=== PATIENT | male | born 1950 | race Two or more races ===

== ENCOUNTER 2020-01-28 06:53 | Emergency (ER) | payer MEDICARE, OTHER ==
[~2020-01-28] VITALS: Ht 167.6 cm; Wt 63.5 kg
--- NOTE | 2020-01-28 06:55 | NUR ---
ED Nurse Note: Pt brought in by ambulance from home c/o High BP, pt took his HTN medication at 0430. BP upon triage was 179/80. Pt placed on chuck wagon cook. Pt is A&Ox4. Pt has a portable O2 tank at his side but it is not on. Pt states he doesn't feel sob, hx COPD and HTN
[2020-01-28 06:57] VITALS: BP 190/83
--- NOTE | 2020-01-28 06:59 | NUR ---
HAND-OFF: Report given to Jeremy Isaacs.
--- NOTE | 2020-01-28 07:02 | NUR ---
ED Nurse Note: Received report from Hilda BOONE. Pt AAO x4, verbally responsive. No acute distress. Will cont to monitor.
--- NOTE | 2020-01-28 07:05 | NUR ---
ED Nurse Note: Xray done at bedside.
--- NOTE | 2020-01-28 07:10 | NUR ---
ED Nurse Note: Iv line established. Blood specimen collected and sent to lab.
--- NOTE | 2020-01-28 07:36 | Emergency Room Report ---
History of Present Illness General Chief Complaint: Hypertension Source: Patient Present Illness HPI This patient complains of generalized weakness. He states he is also had elevated blood pressure over the past day. He did take his usual blood pressure medication this morning around 4 AM of 240 mg diltiazem. He denies chest pain or shortness of breath. He does have a history of severe COPD and has a 2 L nasal cannula O2 requirement. He denies abdominal pain. He denies headache or neck pain. He denies weakness. He denies tingling or numbness. Denies cough or congestion. He denies recent illness. He has no other complaints. Allergies: Coded Allergies: CODEINE (Verified Allergy, Unknown, 01/28/20) COVID-19 Screening Contact w/high risk pt: No Recent Travel to affected area: No Experienced COVID-19 symptoms?: No COVID-19 Testing performed VETERANS' COORDINATOR: No Patient History Past Medical History: see triage record, HTN, COPD Reviewed Nursing Documentation: PMH: Agreed; PSxH: Agreed Nursing Documentation-PMH Hx Hypertension: Yes Hx COPD: Yes Review of Systems All Other Systems: negative except mentioned in HPI Physical Exam Vital Signs Date Time Temp Pulse Resp B/P (MAP) Pulse Ox O2 Delivery O2 Flow Rate FiO2 01/28/20 06:46 98.1 20 190/83 (118) 96 Room Air 01/28/20 06:57 92 Sp02 EP Interpretation: reviewed, normal General Appearance: no apparent distress, alert, GCS 15, non-toxic Head: normocephalic, atraumatic Eyes: bilateral eye normal inspection, bilateral eye PERRL ENT: hearing grossly normal, normal pharynx, no angioedema, normal voice Neck: full range of motion, supple/symm/no masses Respiratory: chest non-tender, lungs clear, no respiratory distress, no retraction, no accessory muscle use, decreased breath sounds, speaking full sentences Cardiovascular #1: regular rate, rhythm, no edema Gastrointestinal: normal bowel sounds, non tender, soft, non-distended, no guarding, no rebound Rectal: deferred Musculoskeletal: back normal, normal range of motion, gait/station normal, non- tender Neurologic: alert, motor strength/tone normal, oriented x3, sensory intact, responsive, speech normal Psychiatric: judgement/insight normal, memory normal, mood/affect normal, no suicidal/homicidal ideation Skin: no rash, normal color Medical Decision Making Diagnostic Impression: Primary Impression: Hypertension ER Course This patient is very concerned about his blood pressure. This is asymptomatic HTN. The patient's w/u is benign. Laboratory w/u, CXR and EKG is unremarkable. Specifically no e/o cardiac ischemic changes, CVA or other complications. The patient states that he never gets blood pressure this elevated. I did give him hydralazine and lisinopril in the ED. I suspect this is multifactorial, to include diet and anxiety. Regardless, this patient's evaluation is benign and there is no e/o hypertensive urgency or emergency. I will give the patient an rx of lisinopril to have and use if he is having prolonged htn. He is instructed to f/u closely with his PCP. At this time, I did not identify an emergency medical condition. The patient is given close return precautions and f/u instructions. Laboratory Tests Test 01/28/20 07:40 01/28/20 08:05 White Blood Count 7.6 K/UL (4.8-10.8) Red Blood Count 4.89 M/UL (4.70-6.10) Hemoglobin 14.3 G/DL (14.2-18.0) Hematocrit 42.3 % (42.0-52.0) Mean Corpuscular Volume 86 FL (80-99) Mean Corpuscular Hemoglobin 29.3 PG (27.0-31.0) Mean Corpuscular Hemoglobin Concent 33.9 G/DL (32.0-36.0) Red Cell Distribution Width 11.5 % (11.6-14.8) L Platelet Count 222 K/UL (150-450) Mean Platelet Volume 8.5 FL (6.5-10.1) Neutrophils (%) (Auto) 65.2 % (45.0-75.0) Lymphocytes (%) (Auto) 22.3 % (20.0-45.0) Monocytes (%) (Auto) 8.3 % (1.0-10.0) Eosinophils (%) (Auto) 3.0 % (0.0-3.0) Basophils (%) (Auto) 1.3 % (0.0-2.0) Sodium Level 142 MMOL/L (136-145) Potassium Level 4.3 MMOL/L (3.5-5.1) Chloride Level 106 MMOL/L (98-107) Carbon Dioxide Level 30 MMOL/L (21-32) Anion Gap 6 mmol/L (5-15) Blood Urea Nitrogen 16 mg/dL (7-18) Creatinine 0.8 MG/DL (0.55-1.30) Estimated Glomerular Filtration Rate > 60 mL/min (>60) Glucose Level 135 MG/DL (74-106) H Lactic Acid Level 1.80 mmol/L (0.4-2.0) Calcium Level 8.7 MG/DL (8.5-10.1) Total Bilirubin 0.2 MG/DL (0.2-1.0) Aspartate Amino Transferase (AST) 22 U/L (15-37) Alanine Aminotransferase (ALT) 24 U/L (12-78) Alkaline Phosphatase 55 U/L (46-116) Total Creatine Kinase 79 U/L (26-308) Creatine Kinase MB 2.1 NG/ML (0.0-3.6) Creatine Kinase MB Relative Index 2.6 Troponin I 0.000 ng/mL (0.000-0.056) Total Protein 7.3 G/DL (6.4-8.2) Albumin 3.9 G/DL (3.4-5.0) Globulin 3.4 g/dL Albumin/Globulin Ratio 1.1 (1.0-2.7) Urine Color Pale yellow Urine Appearance Clear Urine pH 6 (4.5-8.0) Urine Specific [place] 1.015 (1.005-1.035) Urine Protein Negative (NEGATIVE) Urine Glucose (UA) Negative (NEGATIVE) Urine Ketones Negative (NEGATIVE) Urine Blood Negative (NEGATIVE) Urine Nitrite Negative (NEGATIVE) Urine Bilirubin Negative (NEGATIVE) Urine Urobilinogen Normal MG/DL (0.0-1.0) Urine Leukocyte Esterase Negative (NEGATIVE) Urine Opiates Screen Negative (NEGATIVE) Urine Barbiturates Screen Negative (NEGATIVE) Phencyclidine (PCP) Screen Negative (NEGATIVE) Urine Amphetamines Screen Negative (NEGATIVE) Urine Benzodiazepines Screen Negative (NEGATIVE) Urine Cocaine Screen Negative (NEGATIVE) Urine Marijuana (THC) Screen Negative (NEGATIVE) EKG Diagnostic Results Rate: normal Rhythm: NSR ST Segments: no acute changes Rhythm Strip Diag. Results EP Interpretation: yes Rate: 70's Rhythm: NSR, no PVC's, no ectopy Chest X-Ray Diagnostic Results Chest X-Ray Diagnostic Results : Chest X-Ray Ordered: Yes # of Views/Limited/Complete: 1 View Indication: Chest Pain EP Interpretation: Yes Interpretation: no consolidation, no effusion, no pneumothorax, no acute cardiopulmonary disease Impression: No acute disease Electronically Signed by: Iram Quezada DO Last Vital Signs Date Time Temp Pulse Resp B/P (MAP) Pulse Ox O2 Delivery O2 Flow Rate FiO2 01/28/20 06:57 92 20 Room Air 01/28/20 06:57 98.1 190/83 96 Status: improved Disposition: HOME, SELF-CARE Condition: Improved Scripts Lisinopril* (LISINOPRIL*) 10 Mg Tablet 10 MG ORAL DAILY, #30 TAB Prov: Iram Quezada DO 01/28/20 Referrals: NOT CHOSEN [facility]/,REFERRING (PCP) Iram Quezada DO January 28, 2020 07:36
[2020-01-28 07:59] LABS: BASOPHILS % (AUTO) 1.3 % (0.0-2.0); HEMATOCRIT 42.3 % (42.0-52.0); HEMOGLOBIN 14.3 G/DL (14.2-18.0); LYMPHOCYTES % (AUTO) 22.3 % (20.0-45.0); MEAN CORPUSCULAR VOLUME 86 FL (80-99); MONOCYTES % (AUTO) 8.3 % (1.0-10.0); NEUTROPHILS % (AUTO) 65.2 % (45.0-75.0); PLATELET COUNT 222 K/UL (150-450); RED BLOOD COUNT 4.89 M/UL (4.70-6.10); RED CELL DISTRIBUTION WIDTH 11.5 % (11.6-14.8); WHITE BLOOD COUNT 7.6 K/UL (4.8-10.8)
[2020-01-28 08:00] VITALS: BP 165/66
[2020-01-28 08:05] LABS: ANION GAP 6 mmol/L (5-15); BLOOD UREA NITROGEN 16 mg/dL (7-18); CALCIUM 8.7 MG/DL (8.5-10.1); CARBON DIOXIDE 30 MMOL/L (21-32); CHLORIDE 106 MMOL/L (98-107); CREATININE 0.8 MG/DL (0.55-1.30); POTASSIUM 4.3 MMOL/L (3.5-5.1); SODIUM 142 MMOL/L (136-145)
--- NOTE | 2020-01-28 08:07 | NUR ---
ED Nurse Note: Urine specimen collected and sent to lab.
--- NOTE | 2020-01-28 08:17 | Diagnostic Imaging Report ---
Procedure: XRAY Chest 1v Reason for study: Shortness of breath. Weakness Comparison films: None. FINDINGS: A single one view chest is obtained. Vascularity is normal. Mild left basilar densities either atelectasis or early infiltrate. Left hemidiaphragm slightly elevated. Cardiac and mediastinal silhouette are within normal limits. CP angles are sharp. The bony thorax appear unremarkable. IMPRESSION: Left bibasilar densities as atelectasis versus early infiltrate.
[2020-01-28 08:32] LABS: ALANINE AMINOTRANSFERASE 24 U/L (12-78); ALBUMIN 3.9 G/DL (3.4-5.0); ALBUMIN/GLOBULIN RATIO 1.1 (1.0-2.7); ALKALINE PHOSPHATASE 55 U/L (46-116); ASPARTATE AMINO TRANSFERASE 22 U/L (15-37); BILIRUBIN,TOTAL 0.2 MG/DL (0.2-1.0); CKMB 2.1 NG/ML (0.0-3.6); CREATINE KINASE 79 U/L (26-308)
[2020-01-28 08:51] LABS: APPEARANCE,URINE CLEAR; BILIRUBIN, URINE NEGATIVE (NEGATIVE); COLOR,URINE PALE YELLOW; GLUCOSE, URINE (UA) NEGATIVE (NEGATIVE); KETONES,URINE NEGATIVE (NEGATIVE); LEUKOCYTE ESTERASE ,URINE NEGATIVE (NEGATIVE); NITRITE,URINE NEGATIVE (NEGATIVE); PH,URINE 6 (4.5-8.0); PROTEIN,URINE NEGATIVE (NEGATIVE); UROBILINOGEN,URINE NORMAL MG/DL (0.0-1.0)
[2020-01-28] MEDS ORDERED: Lisinopril 10mg tab ORAL ONE (09:15)
[2020-01-28] MEDS ORDERED: LISINOPRIL10 MG ORAL (09:20)
[2020-01-28 09:59] VITALS: BP 155/70
--- NOTE | 2020-01-28 09:59 | NUR ---
ED Nurse Note: Pt cleared by ERMD for discharge. DC instructions/prescription was given and explained to pt and verbalized understanding of teachings. All medical deviecs such as ID band and IV line removed. Pt is AAO x4, ambulatory and left with all personal belongings.
== END 2020-01-28 09:59 | disposition home or self-care (01) ==
LOC: EDBD 06:53 → EMR 07:08
DX: I10 Essential (primary) hypertension (principal); J44.9 Chronic obstructive pulmonary disease, unspecified; Z88.6 Allergy status to analgesic agent
CPT/HCPCS: 36415; 71045; 80053; 80307; 81003; 82550; 82553; 83605; 84484; 85025; 93005; 96374; 99284; J0360; J7040

== ENCOUNTER 2020-02-10 20:38 | Emergency (ER) | payer MEDICARE, OTHER ==
[~2020-02-10] VITALS: Ht 167.6 cm; Wt 63.5 kg
[~2020-02-10 20:38] MED LIST: LISINOPRIL10 MG ORAL
--- NOTE | 2020-02-10 21:05 | NUR ---
ED Nurse Note: Recieved pt from home here with c/o left chest pain intermittently he has been having for past 3-4 days and wants to know why, pt denies having any pain now, pt is wearing oxygen 2l n/c from home, no sob or labored breathing pt assisted to gowning and he refuse, placed on cardiac monitoring, iv line placed and labs done, will resume care as ordered and continue to closely monitor.
[2020-02-10 21:55] LABS: BASOPHILS % (AUTO) 1.9 % (0.0-2.0); EOSINOPHILS % (AUTO) 2.9 % (0.0-3.0); HEMOGLOBIN 13.4 G/DL (14.2-18.0); LYMPHOCYTES % (AUTO) 24.1 % (20.0-45.0); MEAN CORPUSCULAR VOLUME 92 FL (80-99); MONOCYTES % (AUTO) 9.9 % (1.0-10.0); NEUTROPHILS % (AUTO) 61.2 % (45.0-75.0); PLATELET COUNT 234 K/UL (150-450); RED BLOOD COUNT 4.56 M/UL (4.70-6.10); RED CELL DISTRIBUTION WIDTH 12.6 % (11.6-14.8); WHITE BLOOD COUNT 7.9 K/UL (4.8-10.8)
--- NOTE | 2020-02-10 21:59 | Diagnostic Imaging Report ---
EXAM: XR Chest, 1 View CLINICAL HISTORY: CP TECHNIQUE: Frontal view of the chest. COMPARISON: 01/28/2020 FINDINGS: Lungs: Low lung volumes with bronchovascular crowding. No consolidation, pleural effusion, or pneumothorax. Pleural space: See above. Heart: Unremarkable. No cardiomegaly. Mediastinum: Unremarkable. Bones/joints: Unremarkable. Soft tissues: Consider outpatient unenhanced CT chest versus repeating study with nipple markers to further evaluate nodular left lateral lung 0. 8 cm focus. Upper abdomen: Unchanged left diaphragm elevation. IMPRESSION: 1. Low lung volumes with bronchovascular crowding. 2. Otherwise no acute cardiopulmonary disease. 3. If there is continued concern, recommend frontal and lateral chest radiographs or CT. 4. Unchanged left diaphragm elevation. 5. Consider outpatient unenhanced CT chest versus repeating study with nipple markers to further evaluate nodular left lateral lung 0.8 cm focus.
[2020-02-10 22:00] VITALS: BP 154/67
[2020-02-10 22:04] LABS: ANION GAP 7 mmol/L (5-15); BLOOD UREA NITROGEN 15 mg/dL (7-18); CALCIUM 9.1 MG/DL (8.5-10.1); CARBON DIOXIDE 30 MMOL/L (21-32); CHLORIDE 106 MMOL/L (98-107); CREATININE 0.9 MG/DL (0.55-1.30); SODIUM 143 MMOL/L (136-145)
[2020-02-10 22:15] LABS: ALANINE AMINOTRANSFERASE 17 U/L (12-78); ALBUMIN 3.9 G/DL (3.4-5.0); ALBUMIN/GLOBULIN RATIO 1.3 (1.0-2.7); ALKALINE PHOSPHATASE 48 U/L (46-116); ASPARTATE AMINO TRANSFERASE 18 U/L (15-37); BILIRUBIN,TOTAL 0.3 MG/DL (0.2-1.0)
--- NOTE | 2020-02-10 22:44 | NUR ---
AMA: SEE AMA FORM. pt refused admission and states he will return if pain returns. pt is ambulatory, denies cp, has all belongings and signed AMA form after speaking with , javier noted during pt leaving, ambulates well with steady gait. iv line removed without complications.
[2020-02-10 22:45] VITALS: BP 154/67
--- NOTE | 2020-02-13 16:30 | Emergency Room Report ---
History of Present Illness General Chief Complaint: Chest Pain Source: Patient Present Illness HPI 69-year-old male presents to ED for evaluation of chest pain. Started yesterday. Midsternal, comes and goes. Denies pain at this time. Denies shortness of breath. Notes history of hypertension. Denies alcohol or drug use. history of COPD. Normally on oxygen but does not require it at this time. No other aggravating relieving factors. Denies any other associated symptoms Allergies: Coded Allergies: CODEINE (Verified Allergy, Unknown, 01/28/20) COVID-19 Screening Contact w/high risk pt: No Recent Travel to affected area: No Experienced COVID-19 symptoms?: No COVID-19 Testing performed DANCE CHOREOGRAPHER: No Patient History Past Medical History: HTN, COPD Past Surgical History: none Pertinent Family History: none Social History: Denies: smoking, alcohol use, drug use Immunizations: UTD Reviewed Nursing Documentation: PMH: Agreed; PSxH: Agreed Nursing Documentation-PMH Hx Hypertension: Yes Hx COPD: Yes Review of Systems All Other Systems: negative except mentioned in HPI Physical Exam Vital Signs Date Time Temp Pulse Resp B/P (MAP) Pulse Ox O2 Delivery O2 Flow Rate FiO2 02/10/20 20:57 98.2 78 16 146/75 (98) 95 Nasal Cannula 2.0 Sp02 EP Interpretation: reviewed, normal General Appearance: no apparent distress, alert, GCS 15, non-toxic Head: normocephalic, atraumatic Eyes: bilateral eye normal inspection, bilateral eye PERRL ENT: hearing grossly normal, normal pharynx, no angioedema, normal voice Neck: full range of motion, supple/symm/no masses Respiratory: chest non-tender, lungs clear, normal breath sounds, speaking full sentences Cardiovascular #1: regular rate, rhythm, no edema Cardiovascular #2: 2+ carotid (R), 2+ carotid (L), 2+ radial (R), 2+ radial (L) , 2+ dorsalis pedis (R), 2+ dorsalis pedis (L) Gastrointestinal: normal bowel sounds, non tender, soft, non-distended, no guarding, no rebound Rectal: deferred Genitourinary: normal inspection, no CVA tenderness Musculoskeletal: back normal, normal range of motion, gait/station normal, non- tender Neurologic: alert, motor strength/tone normal, oriented x3, sensory intact, responsive, speech normal Psychiatric: judgement/insight normal, memory normal, mood/affect normal, no suicidal/homicidal ideation Reflexes: 3+ bicep (R), 3+ bicep (L), 3+ tricep (R), 3+ tricep (L), 3+ knee (R) , 3+ knee (L) Lymphatic: no adenopathy Medical Decision Making Diagnostic Impression: Primary Impression: Chest pain Qualified Codes: R07.9 - Chest pain, unspecified ER Course Hospital Course 69 yo M presents c/o chest pain. Differential diagnoses include: TN/unstable angina, contusion, muscle strain, PTX, rib fracture Clinical course Patient placed on stretcher. 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 After initial history and physical I ordered labs, EKG, chest x-ray labs reviewed- no leukocytosis, hb/hct stable, electrolytes ok, trop negative EKG - NSR, no acute ischemic changes interpreted by me Chest x-ray- no acute process Given patient's presentation and risk factors I recommended admission. Patient would rather be discharged and follow-up with his PMD. Patient states he wishes to go home. Understands the risks of leaving. Patient has competency to make his own decisions. Signed AMA form. I. I feel this is a highly complex case requiring extensive working including EKG/Rhythm strip, Xray/CT/US, Blood/urine lab work, repeat exams while in ED, and administration of strong opiates/narcotics for pain control, admission to hospital or close patient follow up. Diagnosis - chest pain patient left AMA Labs Test 02/10/20 21:35 White Blood Count 7.9 K/UL (4.8-10.8) Red Blood Count 4.56 M/UL (4.70-6.10) Hemoglobin 13.4 G/DL (14.2-18.0) Hematocrit 42.0 % (42.0-52.0) Mean Corpuscular Volume 92 FL (80-99) Mean Corpuscular Hemoglobin 29.4 PG (27.0-31.0) Mean Corpuscular Hemoglobin Concent 31.9 G/DL (32.0-36.0) Red Cell Distribution Width 12.6 % (11.6-14.8) Platelet Count 234 K/UL (150-450) Mean Platelet Volume 10.8 FL (6.5-10.1) Neutrophils (%) (Auto) 61.2 % (45.0-75.0) Lymphocytes (%) (Auto) 24.1 % (20.0-45.0) Monocytes (%) (Auto) 9.9 % (1.0-10.0) Eosinophils (%) (Auto) 2.9 % (0.0-3.0) Basophils (%) (Auto) 1.9 % (0.0-2.0) Sodium Level 143 MMOL/L (136-145) Potassium Level 4.0 MMOL/L (3.5-5.1) Chloride Level 106 MMOL/L (98-107) Carbon Dioxide Level 30 MMOL/L (21-32) Anion Gap 7 mmol/L (5-15) Blood Urea Nitrogen 15 mg/dL (7-18) Creatinine 0.9 MG/DL (0.55-1.30) Estimat Glomerular Filtration Rate > 60 mL/min (>60) Glucose Level 108 MG/DL (74-106) Calcium Level 9.1 MG/DL (8.5-10.1) Total Bilirubin 0.3 MG/DL (0.2-1.0) Aspartate Amino Transf (AST/SGOT) 18 U/L (15-37) Alanine Aminotransferase (ALT/SGPT) 17 U/L (12-78) Alkaline Phosphatase 48 U/L (46-116) Troponin I 0.000 ng/mL (0.000-0.056) Pro-B-Type Natriuretic Peptide 91 pg/mL (0-125) Total Protein 6.8 G/DL (6.4-8.2) Albumin 3.9 G/DL (3.4-5.0) Globulin 2.9 g/dL Albumin/Globulin Ratio 1.3 (1.0-2.7) EKG Diagnostic Results Rate: normal Rhythm: NSR ST Segments: no acute changes ASA given to the pt in ED: No Rhythm Strip Diag. Results EP Interpretation: yes Rhythm: NSR, no PVC's, no ectopy Chest X-Ray Diagnostic Results Chest X-Ray Diagnostic Results : Chest X-Ray Ordered: Yes # of Views/Limited/Complete: 1 View Indication: Chest Pain EP Interpretation: Yes Interpretation: no consolidation, no effusion, no pneumothorax, no acute cardiopulmonary disease Impression: No acute disease Electronically Signed by: Electronically signed by Josh Bravo MD Last Vital Signs Date Time Temp Pulse Resp B/P (MAP) Pulse Ox O2 Delivery O2 Flow Rate FiO2 02/10/20 22:45 98.2 60 16 154/67 97 Nasal Cannula 2.0 Status: improved Disposition: AGAINST MEDICAL ADVICE Condition: Stable Referrals: NOT CHOSEN [facility]/,REFERRING (PCP) Josh Bravo MD Feb 13, 2020 16:30
== END 2020-02-10 22:45 | disposition left against medical advice (07) ==
LOC: EMR 21:20
DX: R07.9 Chest pain, unspecified (principal); I10 Essential (primary) hypertension; J44.9 Chronic obstructive pulmonary disease, unspecified; Z88.6 Allergy status to analgesic agent
CPT/HCPCS: 36415; 71045; 80053; 83880; 84484; 85025; 93005; 99283

== ENCOUNTER 2020-10-17 07:18 | Emergency (ER) | payer MEDICARE, OTHER ==
[~2020-10-17] VITALS: Ht 162.6 cm; Wt 59.0 kg
[2020-10-17] MEDS ORDERED: Nitroglycerin Subl 0.4mg tab SL PRN (07:45)
[2020-10-17] MEDS ORDERED: Enalaprilat 2.5mg/2ml Inj IV ONE (07:45)
[2020-10-17 07:46] LABS: BASOPHILS % (AUTO) 1.4 % (0.0-2.0); EOSINOPHILS % (AUTO) 1.1 % (0.0-3.0); HEMATOCRIT 42.3 % (42.0-52.0); HEMOGLOBIN 13.9 G/DL (14.2-18.0); MEAN CORPUSCULAR VOLUME 93 FL (80-99); MONOCYTES % (AUTO) 9.2 % (1.0-10.0); NEUTROPHILS % (AUTO) 69.4 % (45.0-75.0); PLATELET COUNT 317 K/UL (150-450); RED BLOOD COUNT 4.56 M/UL (4.70-6.10); RED CELL DISTRIBUTION WIDTH 15.3 % (11.6-14.8); WHITE BLOOD COUNT 12.5 K/UL (4.8-10.8)
--- NOTE | 2020-10-17 07:48 | Emergency Room Report ---
History of Present Illness General Chief Complaint: Chest Pain Source: Patient, EMS Present Illness HPI Patient is a 70-year-old male presents for increased chest discomfort. Prior history of COPD. Patient is currently taking antihypertensives. Prior history of aspirin allergy. Patient was brought in by EMS. Onset of symptoms this morning after waking up. Recently had negative coronavirus testing in September. Takes medications for hypertension. EKG by EMS showed sinus tachycardia. Patient states pain started approximately 6 AM. Denies any fever. Had recently had steroids tapered and had been on 40 mg of prednisone but is now on 10. Patient is a former smoker states he quit 5 years ago. Did not drink alcohol. Patient states that he had recently been started on antibiotics due to colonoscopy and is currently on doxycycline as well as Flagyl. 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 Patient History Past Medical History: see triage record Reviewed Nursing Documentation: PMH: Agreed; PSxH: Agreed Nursing Documentation-PMH Hx Hypertension: Yes Hx COPD: Yes Review of Systems All Other Systems: negative except mentioned in HPI Physical Exam Vital Signs Date Time Temp Pulse Resp B/P (MAP) Pulse Ox O2 Delivery O2 Flow Rate FiO2 10/17/20 07:18 98.2 120 16 173/83 (113) 100 Room Air Sp02 EP Interpretation: reviewed, normal General Appearance: normal inspection, well appearing, no apparent distress, alert, GCS 15, Chronically Ill Head: atraumatic ENT: normal ENT inspection, hearing grossly normal, normal voice Neck: normal inspection, full range of motion, supple, no bony tend Respiratory: normal inspection, lungs clear, normal breath sounds, no respiratory distress, no retraction, no wheezing Cardiovascular #1: no edema, tachycardia Gastrointestinal: normal inspection, normal bowel sounds, non tender, soft, no guarding, no hernia Genitourinary: no CVA tenderness Musculoskeletal: normal inspection, back normal, normal range of motion Neurologic: alert, motor strength/tone normal, plunket nurse III-XII nml as tested, oriented x3, responsive, speech normal, normal inspection Psychiatric: normal inspection, judgement/insight normal, mood/affect normal Medical Decision Making Diagnostic Impression: Primary Impression: Chest pain ER Course Patient presents for chest pain. Differential diagnosis include was not limited to pneumonia, COPD exacerbation, myocardial infarction, among others. Patient had recent steroid use and patient's white count is minimally elevated consistent with recent steroids. EKG showed sinus tachycardia. Bedside ultrasound showed no evidence of pericardial effusion. Chest x-ray 1 view showed normal cardiac size without evident infiltrate.Patient's blood pressure was initially hypertensive.Patient's oxygen saturation was 97% on room air. Patient's pain improved over time and appears to be rate related.Patient was offered hospital admission. Patient's laboratory testing was notable for elevated blood sugar likely related to recent steroid use. Patient given IV fluids as well as Medications for blood pressure. Patient was offered hospitali zation which he declined. Patient's oxygen saturation appears to be adequate. This medical record is generated with [employer] claims attorney software. There may be some claims attorney discrepancies related to use of this software Laboratory Tests Test 10/17/20 07:20 White Blood Count 12.5 K/UL (4.8-10.8) H Red Blood Count 4.56 M/UL (4.70-6.10) L Hemoglobin 13.9 G/DL (14.2-18.0) L Hematocrit 42.3 % (42.0-52.0) Mean Corpuscular Volume 93 FL (80-99) Mean Corpuscular Hemoglobin 30.5 PG (27.0-31.0) Mean Corpuscular Hemoglobin Concent 32.8 G/DL (32.0-36.0) Red Cell Distribution Width 15.3 % (11.6-14.8) H Platelet Count 317 K/UL (150-450) Mean Platelet Volume 8.3 FL (6.5-10.1) Neutrophils (%) (Auto) 69.4 % (45.0-75.0) Lymphocytes (%) (Auto) 19.0 % (20.0-45.0) L Monocytes (%) (Auto) 9.2 % (1.0-10.0) Eosinophils (%) (Auto) 1.1 % (0.0-3.0) Basophils (%) (Auto) 1.4 % (0.0-2.0) Sodium Level 144 MMOL/L (136-145) Potassium Level 3.7 MMOL/L (3.5-5.1) Chloride Level 107 MMOL/L (98-107) Carbon Dioxide Level 30 MMOL/L (21-32) Anion Gap 7 mmol/L (5-15) Blood Urea Nitrogen 20 mg/dL (7-18) H Creatinine 0.9 MG/DL (0.55-1.30) Estimated Glomerular Filtration Rate > 60 mL/min (>60) Glucose Level 203 MG/DL (74-106) H Calcium Level 8.9 MG/DL (8.5-10.1) Total Bilirubin 0.5 MG/DL (0.2-1.0) Aspartate Amino Transferase (AST) 33 U/L (15-37) Alanine Aminotransferase (ALT) 61 U/L (12-78) Alkaline Phosphatase 50 U/L (46-116) Troponin I 0.004 ng/mL (0.000-0.056) Total Protein 6.7 G/DL (6.4-8.2) Albumin 3.2 G/DL (3.4-5.0) L Globulin 3.5 g/dL Albumin/Globulin Ratio 0.9 (1.0-2.7) L EKG Diagnostic Results Rate: tachycardiac Rhythm: NSR ST Segments: no acute changes Other Impression Sinus tachycardia with a rate of [address] or T wave changes noted. ASA given to the pt in ED: No Last Vital Signs Date Time Temp Pulse Resp B/P (MAP) Pulse Ox O2 Delivery O2 Flow Rate FiO2 10/17/20 07:18 98.2 120 16 173/83 (113) 100 Room Air Referrals: NOT CHOSEN [facility]/,REFERRING (PCP) Pierce Luan MD Oct 17, 2020 07:48
[2020-10-17 07:54] LABS: ANION GAP 7 mmol/L (5-15); BLOOD UREA NITROGEN 20 mg/dL (7-18); CALCIUM 8.9 MG/DL (8.5-10.1); CARBON DIOXIDE 30 MMOL/L (21-32); CHLORIDE 107 MMOL/L (98-107); CREATININE 0.9 MG/DL (0.55-1.30); POTASSIUM 3.7 MMOL/L (3.5-5.1); SODIUM 144 MMOL/L (136-145)
[2020-10-17 07:59] LABS: ALANINE AMINOTRANSFERASE 61 U/L (12-78); ALBUMIN 3.2 G/DL (3.4-5.0); ALBUMIN/GLOBULIN RATIO 0.9 (1.0-2.7); ALKALINE PHOSPHATASE 50 U/L (46-116); ASPARTATE AMINO TRANSFERASE 33 U/L (15-37); BILIRUBIN,TOTAL 0.5 MG/DL (0.2-1.0)
[2020-10-17 08:11] VITALS: BP 141/73
[2020-10-17] MEDS: Albuterol/Ipratropium 3ml neb HHN ONE (08:20)
[2020-10-17 09:05] VITALS: BP 139/63
--- NOTE | 2020-10-17 09:14 | Diagnostic Imaging Report ---
Indication: Chest pain Technique: One view of the chest Comparison: 02/10/2020 Findings: Left hemidiaphragm is elevated and there is left basilar atelectasis. The lungs and pleural spaces are clear otherwise. The heart size is normal. Findings are unchanged Impression: No acute process
--- NOTE | 2020-10-17 10:25 | NUR ---
ED Nurse Note: pt repeat troponin sent. pt on monitor. pt stable
[2020-10-17] MEDS ORDERED: OMEPRAZOLE20 M2 ORAL (10:55)
--- NOTE | 2020-10-17 11:08 | NUR ---
ER DISCHARGE NOTE: Patient is cleared to be discharged per ERMD, pt is aox4, on room air, with stable vital signs. pt was given dc and prescription instructions, pt was able to verbalize understanding, pt id band and iv site removed without complications. pt is able to ambulate with steady gait. pt took all belongings.
[2020-10-17 11:09] VITALS: BP 146/62
== END 2020-10-17 11:13 | disposition home or self-care (01) ==
LOC: EDBD 07:18 → EMR 07:39 → CANBEDREQ 10:54 → EMR 11:13
DX: R07.9 Chest pain, unspecified (principal); J44.9 Chronic obstructive pulmonary disease, unspecified; I10 Essential (primary) hypertension; Z79.899 Other long term (current) drug therapy; Z88.6 Allergy status to analgesic agent; Z88.5 Allergy status to narcotic agent
CPT/HCPCS: 36415; 71045; 80053; 84484; 85025; 93005; 94640; 96374; 99284; U0004; J7620

== ENCOUNTER 2020-10-28 23:54 | Emergency (ER) | payer MEDICARE, OTHER ==
[~2020-10-28] VITALS: Ht 167.6 cm; Wt 57.2 kg
[~2020-10-28 23:54] MED LIST changes: +OMEPRAZOLE20 M2 ORAL
--- NOTE | 2020-10-28 23:54 | Emergency Room Report ---
History of Present Illness General Chief Complaint: Dyspnea/Respdistress Source: Patient Present Illness HPI Patient is a 70-year-old male with past medical history of COPD home O2 dependent on 2 L, hypertension, anxiety, brought in by ambulance with chief complaint of shortness of breath x 10-14 days. He endorses mild dry cough. He was apparently seen here 11 days ago for similar symptoms and discharged. He denies any specific complaint of chest pain at this time as well as nausea, vomiting, diarrhea, hemoptysis, fever, rash, headache, photophobia, or other symptoms. Patient denies having to increase his baseline oxygen requirement. The patient's symptoms were gradual onset, severity was moderate, duration since 14 days. Quality: sob Past medical history: COPD, hypertension, anxiety Past surgical history: Denies Smoking: Previous heavy smoker but quit 5 years ago Alcohol use: Denies Drug use: Denies Review of systems: CONST: No fevers or chills, No night sweats PULMONARY: No productive cough, No shortness of breath CARDIAC: No chest pain, No palpitations GI: No vomiting, No diarrhea , No melena_or_BRBPR : No dysuria, No hematuria, No discharge NEURO: No new_focal_weakness_or_numbness, No confusion, No vision changes 14 point Review of Systems is otherwise negative except per HPI Physical Exam: GENERAL: Awake_alert_ nontoxic, no acute distress Spo2 95% on 2 L nasal cannula- normal EYES: Extraocular muscles are intact. Conjunctivae clear. Lids without swelling ENT: External nose and ear normal_in_appearance. Oropharynx clear. Head_atraumatic, Moist_oral_mucosa NECK: No JVD. No meningismus. No thyromegaly. Supple. Trachea midline RESP: Normal respiratory effort. Mild diffuse inspiratory and expiratory wheezing. No subcostal retractions. In full complete sentences Symmetric rise. No stridor. Clear_to_auscultation_No_rales_ CARDIAC: Tachycardic and regular rhytm. No_significant pedal edema. ABDOMEN: Soft. Nondistended. Nontender_No_rebound_or_guarding. MSK: Normal muscle tone, without rigidity. Extremities without asymmetric deformity or swelling. Negative Homans' sign SKIN: Warm and dry. No visible cyanosis or pallor NEUROLOGIC: Alert, oriented x3. Motor_and_sensation_grossly_intact. No truncal ataxia. Gait_normal Psych: Normal mood and affect, normal judgment and insight - COORDINATION OF CARE Case was discussed with: Patient Any labs and imaging that were ordered were interpreted as part of the medical decision making: Medical Decision Making/Plan: Differential diagnosis includes: COPD exacerbation, pneumonia, bronchitis, pneumothorax, pulmonary embolism, pulmonary edema, CHF, among others. The patients presentation seems most consistent with a COPD exacerbation given their wheezing on exam with a history of COPD . Labs showed no acute abnormalities. Troponin was negative x2. Initial EKG showed normal sinus rhythm, LVH, and ectopy. Repeat EKG showed no dynamic changes or evolving ischemia. Chest x ray shows no acute disease. Covid rapid antigen test was negative. CTA chest was negative for PE or aortic dissection. There was an incidental finding of thyroid nodule which patient was educated about. I informed him that he will need repeat imaging and testing with his primary doctor in 3 to 5 months to rule out cancer. He verbalizes his understanding of this. The patient was given albuterol, atrovent, steroids, and had serial reassessments which demonstrated significant improvement in their symptoms. Repeat trop and EKG were negative. Acute coronary syndrome is unlikely and the patient is low risk, pain is atypical, nonexertional, and troponin is negative with over 6 hrs of symptoms. The pain is not classic for pericarditis or myocarditis, and the patient has no significant risk factors for a pericardial effusion and has stable vitals signs, unlikely to have tamponade. The patient has no significant risk factors for aortic dissection, no history of connective tissue disorder, and the patients pain is not severe, radiating to the back, or tearing in nature. They have normal bilateral radial and pedal pulses. Patient observed for several hours in the ED, ECG with no emergent findings, patient discharged with no dangerous vital signs, patient instructed to follow up with PMD in the next 1-2 days The patient is now stable to be discharged home safely for further outpatient management and reevaluation by their primary medical doctor in 1-2 days. The patient will be discharged with a prescription for steroids, as well as a refill of their inhaler if needed. 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 COVID-19 Screening: Negative COVID-19 COVID-19 Testing Source: [facility] [place] Nursing Documentation-[facility] Past Medical History: No History, Except For Hx COPD: Yes Physical Exam Sp02 EP Interpretation: reviewed, normal Medical Decision Making Diagnostic Impression: Primary Impression: COPD exacerbation Additional Impressions: Shortness of breath Emphysema lung Thyroid lesion EKG Diagnostic Results Troponin ordered: Yes When was troponin ordered?: Oct 29, 2020 JOSE D Keenibe Lucas 12-lead EKG (interpreted by ) Time: 0002 Indication: Rhythm analysis Tracing visualized and Interpreted by me. Rhythm: Normal sinus rhythm Rate: 98 bpm QTc: 411 Morphology: No_significant_ST_elevations_or_depressions, No STEMI Impression: Normal_sinus_rhythm_without_significant_abnormality. Ectopy. Possible left ventricular hypertrophy. No change from serial EKGs performed on October 17, 2020 Rhythm Strip Diag. Results Rhythm Strip Time: 02:51 EP Interpretation: yes Rate: 81 Rhythm: NSR, no PVC's, no ectopy Chest X-Ray Diagnostic Results Chest X-Ray Diagnostic Results : JOSE D Zavala Chest X-Ray: Views: [ 1 ] view(s) Indication: Shortness of breath Findings: Normal heart size. Mediastinum normal. No infiltrate. Hyperinflated lungs. Left gastric bubble Impression: No acute disease The X-ray(s) were independently viewed and interpreted contemporaneously Electronically signed by Anum tran, CT/MRI/US Diagnostic Results CT/MRI/US Diagnostic Results : Impression CT Angiography Chest Without and With Intravenous Contrast FINDINGS: Artifacts: Breathing artifact degrade image quality. Pulmonary arteries: No filling defects in the pulmonary arteries to suggest thrombus. Aorta: Calcified atherosclerotic tortuous ectatic thoracic aorta. No thoracic aortic aneurysm. Lungs: Biapical scarring. Mild emphysematous change. Bibasilar atelectasis. Nodular density in the posterior medial right lung base. Patchy airspace disease in the left lung base No mass. Pleural space: Unremarkable. No significant effusion. No pneumothorax. Heart: Mild coronary artery calcification. No significant pericardial effusion. No evidence of RV dysfunction. Mediastinum: Small mediastinal lymph nodes, likely reactive. Thyroid: Tiny low-density lesion in the inferior right thyroid gland, probably benign. This measures approximately 5 mm Follow-up thyroid ultrasound as indicated. Bones/joints: Mild degenerative changes in the thoracic spine. No acute fracture. No dislocation. Soft tissues: Unremarkable. Lymph nodes: Unremarkable. No enlarged lymph nodes. IMPRESSION: 1. Negative for pulmonary embolism. 2. No evidence for aortic dissection. 3. Mild emphysematous change. 4. Atelectasis/airspace disease in the lung bases as described. Consider short-term follow-up to exclude underlying lesion in the medial right lung base. 5. Breathing artifact. Dictated By: Марина Avelar MD Reevaluation Time: 02:51 Status: improved Disposition: HOME, SELF-CARE Admit Decision Time: 03:30 Condition: Stable Scripts Azithromycin* (ZITHROMAX*) 250 Mg Tablet 250 MG ORAL DAILY, #6 TAB 0 Refills Take two tables once daily for 1 day, then one tablet once daily for 4 days. Prov: Anum Crouch D.O. 10/29/20 Ipratropium [place] (ATROVENT HFA) 12.9 Gm Hfa.aer.ad 12.9 GM IH DAILY for bronchospasm for 7 Days, #13 GM Prov: Anum Crouch D.O. 10/29/20 Albuterol Sulfate* (ALBUTEROL SULFATE HHN*) 2.5 Mg/3 Ml Vial.neb 2.5 MG HHN Q4H PRN for Shortness of Breath, #25 VIAL Prov: Anum Crouch D.O. 10/29/20 Prednisone* (PREDNISONE*) 20 Mg Tablet 40 MG ORAL DAILY for 5 Days, #10 TAB Prov: Anum Crouch D.O. 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 Follow-up with your doctor sooner if your condition requires a more timely clinical reevaluation. Return to the emergency department immediately if you feel that your condition is worsening or if you have any new or concerning symptoms. Review your discharge instructions and take any prescriptions given as instructed. You were found to have an abnormality on your neck imaging (thyroid nodule) which will need to be reimaged in approximately 3 months. Cancer or malignancy is one of the possibilities so it needs to be monitored to ensure that it is not changing. It is important that you see a primary doctor to be referred for this imaging. Failure to do so could lead to undetected worsening cancer or illness. [facility] PROVIDES FREE OR LOW-COST HEALTH SERVICES TO PEOPLE WHO CAN SHOW PROOF THAT THEY LIVE IN [facility]. TO FIND MORE CLINICS PARTNERED WITH THE [facility] TO PROVIDE SERVICE, PLEASE CALL . Anum Crouch D.O. Oct 28, 2020 23:54
[2020-10-29] MEDS ORDERED: Ipratropium 0.02% Inh Soln 2.5ml UD HHN ONE
[2020-10-29] MEDS ORDERED: Albuterol ud Inhalation HHN ONE
--- NOTE | 2020-10-29 | NUR ---
ED Nurse Note: patient brought in by ems complaints of SOB hx of COPD patient tachypneic on arrival, SOB with ambulation, 2L NC saturation 98%, no fever, recent COVID (-) result
[2020-10-29] MEDS ORDERED: Solu-MEDROL 125mg Inj IVP ONE (00:15)
--- NOTE | 2020-10-29 00:15 | NUR ---
ED Nurse Note: Blood specimen, COVID specimen sent to lab
[2020-10-29 00:19] LABS: BASOPHILS % (AUTO) 1.2 % (0.0-2.0); EOSINOPHILS % (AUTO) 3.2 % (0.0-3.0); HEMATOCRIT 39.3 % (42.0-52.0); HEMOGLOBIN 12.8 G/DL (14.2-18.0); LYMPHOCYTES % (AUTO) 29.1 % (20.0-45.0); MEAN CORPUSCULAR VOLUME 92 FL (80-99); MONOCYTES % (AUTO) 10.6 % (1.0-10.0); NEUTROPHILS % (AUTO) 55.9 % (45.0-75.0); PLATELET COUNT 171 K/UL (150-450); RED BLOOD COUNT 4.26 M/UL (4.70-6.10); RED CELL DISTRIBUTION WIDTH 14.2 % (11.6-14.8); WHITE BLOOD COUNT 5.5 K/UL (4.8-10.8)
[2020-10-29 00:21] VITALS: BP 166/87
[2020-10-29 00:29] VITALS: BP 155/61
[2020-10-29 00:30] LABS: ANION GAP 5 mmol/L (5-15); BLOOD UREA NITROGEN 19 mg/dL (7-18); CALCIUM 8.3 MG/DL (8.5-10.1); CARBON DIOXIDE 31 MMOL/L (21-32); CHLORIDE 108 MMOL/L (98-107); CREATININE 0.9 MG/DL (0.55-1.30); POTASSIUM 3.7 MMOL/L (3.5-5.1); SODIUM 144 MMOL/L (136-145)
[2020-10-29 00:33] LABS: INR 0.9 (0.9-1.1)
[2020-10-29 00:44] LABS: ALANINE AMINOTRANSFERASE 44 U/L (12-78); ALBUMIN 3.2 G/DL (3.4-5.0); ALKALINE PHOSPHATASE 55 U/L (46-116); ASPARTATE AMINO TRANSFERASE 28 U/L (15-37); BILIRUBIN,TOTAL 0.2 MG/DL (0.2-1.0)
[2020-10-29] MEDS ORDERED: Omnipaque 350 100ml vial INJ PRN (01:15)
--- NOTE | 2020-10-29 02:28 | NUR ---
ED Nurse Note: 2nd troponin specimen drawn and sent to lab repeat EKG performed
[2020-10-29] MEDS ORDERED: ATROVENT HFA12.9 GM IH (02:52)
[2020-10-29] MEDS ORDERED: ALBUTEROL2.5 MG/3 M HHN (02:52)
[2020-10-29] MEDS ORDERED: PREDNISONE20 MG ORAL (02:52)
[2020-10-29] MEDS ORDERED: ZITHROMAX250 MG ORAL (02:52)
[2020-10-29 03:13] VITALS: BP 155/61
--- NOTE | 2020-10-29 03:15 | Diagnostic Imaging Report ---
EXAM: CT Angiography Chest Without and With Intravenous Contrast CLINICAL HISTORY: PE TECHNIQUE: Axial computed tomographic angiography images of the chest without and with intravenous contrast. CTDI is 62.3 mGy and DLP is 146.6 mGy-cm. One or more of the following dose reduction techniques were used: automated exposure control, adjustment of the mA and/or kV according to patient size, use of iterative reconstruction technique. MIP reconstructed images were created and reviewed. COMPARISON: No relevant prior studies available. FINDINGS: Artifacts: Breathing artifact degrade image quality. Pulmonary arteries: No filling defects in the pulmonary arteries to suggest thrombus. Aorta: Calcified atherosclerotic tortuous ectatic thoracic aorta. No thoracic aortic aneurysm. Lungs: Biapical scarring. Mild emphysematous change. Bibasilar atelectasis. Nodular density in the posterior medial right lung base. Patchy airspace disease in the left lung base No mass. Pleural space: Unremarkable. No significant effusion. No pneumothorax. Heart: Mild coronary artery calcification. No significant pericardial effusion. No evidence of RV dysfunction. Mediastinum: Small mediastinal lymph nodes, likely reactive. Thyroid: Tiny low-density lesion in the inferior right thyroid gland, probably benign. This measures approximately 5 mm Follow-up thyroid ultrasound as indicated. Bones/joints: Mild degenerative changes in the thoracic spine. No acute fracture. No dislocation. Soft tissues: Unremarkable. Lymph nodes: Unremarkable. No enlarged lymph nodes. IMPRESSION: 1. Negative for pulmonary embolism. 2. No evidence for aortic dissection. 3. Mild emphysematous change. 4. Atelectasis/airspace disease in the lung bases as described. Consider short-term follow-up to exclude underlying lesion in the medial right lung base. 5. Breathing artifact.
--- NOTE | 2020-10-29 03:35 | NUR ---
ER DISCHARGE NOTE: Patient is cleared to be discharged per ERMD, pt is aox4, with stable vital signs. pt was given dc and prescription instructions, pt was able to verbalize understanding, pt id band and iv site removed without complications. pt is able to ambulate with steady gait. pt took all belongings.
--- NOTE | 2020-10-29 16:57 | Diagnostic Imaging Report ---
Indication: Shortness of breath Technique: One view of the chest Comparison: 10/17/2020 Findings: The left hemidiaphragm is elevated and there is compressive atelectasis at the left lung base. Right lung pleural space are clear. Size is normal. There is no significant interim change Impression: . No acute process Elevated left hemidiaphragm with resultant left basilar atelectasis
--- NOTE | 2020-10-31 10:49 | Cardiology Report ---
APPROVED REPORT EKG Measurement Heart [id number] <Conclusion> Normal sinus rhythm Nonspecific ST and T wave abnormality Abnormal ECG
== END 2020-10-29 04:00 | disposition home or self-care (01) ==
LOC: EDBD 23:54 → EMR 10-29 00:26
DX: J44.1 Chronic obstructive pulmonary disease with (acute) exacerbation (principal); E04.1 Nontoxic single thyroid nodule; R06.02 Shortness of breath; I10 Essential (primary) hypertension; Z87.891 Personal history of nicotine dependence; Z99.81 Dependence on supplemental oxygen; Z79.899 Other long term (current) drug therapy
CPT/HCPCS: 36415; 71045; 71275; 80053; 83880; 84484; 85025; 85610; 85730; 93005; 94640; 96374; 99284; J2930; Q9967